=== PATIENT | female | born 1950 | race African-American/Black ===

== ENCOUNTER 2017-10-08 17:34 | Emergency (ER) | payer MEDICARE, OTHER ==
[~2017-10-08 17:34] MED LIST: VASE1025 PO
[2017-10-08 17:46] VITALS: BP 193/88; PULSE 70; RESP 18; TEMP 97.6; O2SAT 99
--- NOTE | 2017-10-08 18:59 | PD ---
HPI Chief Complaint: Medical Clearance Time Seen by Provider: 17:46 Travel History International Travel<30 days: No Contact w/Intl Traveler<30days: No Traveled to known affect area: No History of Present Illness HPI Pt is a 67-year-old female presenting to the emergency department for evaluation of blurry vision in her right eye. 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 She also reports pain in her left lower back pain radiates down her leg. She reports this started at age 17 but has been acting up for a few days. She denies any recent injury or trauma. She has no complaints of headache, chest pain, shortness of breath. Symptoms appear chronic in nature. Patient denies any alleviating or exacerbating factors. PFSH Past Medical History Medical other: Yes (Vision deficit right eye) Musculoskeletal: Yes (Back pain) Social History Tobacco Use: No Allergies-Medications (Allergen,Severity, Reaction): Coded Allergies: azithromycin (Unverified Allergy, Severe, Anaphylaxis, 03/04/17) penicillin G (Unverified Allergy, Severe, Nausea/Vomiting, 03/04/17) Reported Meds & Prescriptions Reported Meds & Active Scripts Active Reported Vaseretic 10-25 (Enalapril Maleate/HCTZ) 10 Mg/25 Mg Tab 1 Tab PO DAILY Review of Systems Except as stated in HPI: all other systems reviewed are Neg Eyes: Positive: Visual changes Musculoskeletal: Positive: Pain Physical Exam Narrative GENERAL: Well developed, well-nourished, alert female. Presenting in no acute distress. SKIN: Warm and dry. HEAD: Normocephalic. EYES: No scleral icterus. No injection or drainage. Right eye amblyopia NECK: Supple, trachea midline. No JVD or lymphadenopathy. CARDIOVASCULAR: Regular rate RESPIRATORY: No accessory muscle use. Data Data Last Documented VS Vital Signs Date Time Temp Pulse Resp B/P (MAP) Pulse Ox O2 Delivery O2 Flow Rate FiO2 10/08/17 17:46 97.6 70 18 193/88 (123) 99 MDM Medical Decision Making Medical Screen Exam Complete: Yes Emergency Medical Condition: Yes Interpretation(s) Vital Signs Date Time Temp Pulse Resp B/P (MAP) Pulse Ox O2 Delivery O2 Flow Rate FiO2 10/08/17 17:46 97.6 70 18 193/88 (123) 99 Differential Diagnosis Sciatica versus muscle strain versus muscle spasm versus other Narrative Course Patient is a 67-year-old female presenting for evaluation. Patient's vital signs are stable, she is ambulatory in triage. Patient was called be placed in a bed, she was no longer found in the emergency department. Patient left AMA. Diagnosis Primary Impression: Left against medical advice Janice Paul Oct 08, 2017 18:59
== END 2017-10-09 01:23 | disposition left against medical advice (07) ==
LOC: NED 17:34
DX: Z53.21 Procedure and treatment not carried out due to patient leaving prior to being seen by health care provider (principal); H53.8 Other visual disturbances; Z88.0 Allergy status to penicillin; Z79.899 Other long term (current) drug therapy
CPT/HCPCS: 99281